=== PATIENT | female | born 1960 | race African-American/Black ===

== ENCOUNTER → 2018-03-16 | Outpatient (CLI) | payer BC ==
--- NOTE | 2018-03-16 10:42 | KCIC ---
ABDOMEN COMPLETE History: Abdominal pain Comparison: None. Findings: Multiple sonographic images of the abdomen are submitted. There is no abnormality of the visualized pancreas although pancreatic tail not well visualized due to bowel gas. There is mild coarsening and heterogeneity of the echotexture of the liver. Right lobe of the liver measured 16.3 cm longitudinal. Abdominal aortic caliber is within normal limits up to 1.9 cm. There is segmental visualization of the inferior vena cava. Gallbladder is present. There is no gallbladder wall thickening or pericholecystic fluid. There is internal echogenicity, including echogenic foci remaining at the gallbladder neck with patient repositioning. Common bile duct is within normal limits at 0.3 cm. Right kidney measured 11.8 x 5 x 4.7 cm. Left kidney measured 11 x 4.7 x 5.5 cm. There is no hydronephrosis of either kidney. There is a hypoechoic lesion of the mid pole of the left kidney about 1.4 x 1.4 x 1.3 cm. Impression: 1. There is cholelithiasis including gallstones near the gallbladder neck despite patient repositioning. 2. There is mild heterogeneity of the liver echotexture which may be due to mild steatosis. 3. There is likely cyst of the left kidney. Electronically signed by: Jimi Pratt MD (03/16/2018 10:38 AM) [id number]
== END | disposition home or self-care (01) ==
LOC: KCIC US 07:53
PROVIDERS: ATTEND Family Medicine
DX: K80.20 Calculus of gallbladder without cholecystitis without obstruction (principal)
CPT/HCPCS: 76700

== ENCOUNTER → 2021-10-24 | Outpatient (CLI) | payer BC ==
--- NOTE | 2021-10-24 11:46 | RAD ---
Examination: MRI of the right knee without contrast HISTORY: History of medial meniscus tear. COMPARISON: None available TECHNIQUE: Multiplanar, multisequence MR imaging of the right knee was performed FINDINGS: The anterior cruciate ligament, posterior cruciate ligament appears intact. The medial meniscus, late ral meniscus appears intact. There is a multiloculated cystic structure arising from the posterior ro ot of the lateral meniscus extending between the anterior cruciate ligament and posterior cruciate li gament measuring 2 cm likely ganglion cyst. Medial collateral ligament appears intact. There is mild to moderate T2 signal identified about the medial collateral ligament. Lateral collateral ligamentous complex including the fibular collateral ligament, biceps femoris tendon, popliteus tendon appears i ntact. The extensor mechanism appears intact. There is deep fissuring of cartilage identified in the patellofemoral compartment. There is mild supe rficial fraying of cartilage in the medial, lateral compartment. The medial, lateral retinaculum appe ars intact. Mild trabecular edema identified in the medial tibial plateau. Moderate knee joint effusion. Small subchondral cystic changes identified in the patella. Small popliteal cyst. Moderate joint space loss medial, lateral compartment femoral compartments. IMPRESSION: 1. Mild to moderate T2 signal identified about the medial collateral ligament likely grade 2 sprain. 2. Cystic structure likely ganglion cyst arising from the posterior root of the lateral meniscus ext ending between the anterior cruciate ligament and posterior cruciate ligament measuring 2 cm. 3. Moderate tricompartmental degenerative changes most in the patellofemoral compartment. 4. Moderate knee joint effusion with small popliteal cyst. 5. Mild trabecular edema medial tibial plateau. Electronically signed by: Eugenio Platt MD (10/24/2021 11:44 AM) [id number]
== END ==
LOC: MRI 10:17
PROVIDERS: ATTEND Orthopaedic Surgery
DX: M17.11 Unilateral primary osteoarthritis, right knee (principal); M25.461 Effusion, right knee; M71.21 Synovial cyst of popliteal space [Baker], right knee; R60.0 Localized edema; M25.861 Other specified joint disorders, right knee
CPT/HCPCS: 73721